=== PATIENT | male | born 1995 | race Caucasian/White ===

== ENCOUNTER 2022-10-04 18:38 | Emergency (ER) | payer OTHER, SELFPAY ==
[2022-10-04 19:54] VITALS: BP 139/77; PULSE 73; RESP 16; TEMP 36.7; O2SAT 98; BMI 20.7
--- NOTE | 2022-10-04 19:54 | ED_ITS ---
HPI - Dental/Oral General Chief complaint: Dental/Oral Stated complaint: infected tooth Time Seen by Provider: 10/04/22 19:55 Source: patient Mode of arrival: ambulatory Limitations: no limitations History of Present Illness HPI Narrative: 26 yo male presents to the ER with left lower dental pain for the last few days, acutely worse in the last 24 hours. Feels like his tooth is infected. 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 He admits to poor dental care. He denies and swelling to the left side of his face. No fevers. No pain with opening his jaw but it hurts to chew on the left side. He has not taken any medications yet for pain. MD Complaint: tooth pain Location: Tooth # (17) Onset (ago): day(s) (3) Duration: worsening Severity: severe Severity scale (1-10): 10 Related Data Previous Rx's Medication Instructions Recorded amoxicillin 875 mg-potassium 1 tab PO Q12H #20 tabs 10/04/22 clavulanate 125 mg tablet ibuprofen 800 mg tablet 800 mg PO Q8H PRN pain #20 tabs 10/04/22 tramadol 50 mg tablet 50 mg PO Q8H PRN pain #10 tabs 10/04/22 Allergies Allergy/AdvReac Type Severity Reaction Status Date / Time No Known Allergies Allergy Unverified 04/24/20 17:54 Review of Systems Review of Systems: Yes all other systems are reviewed and are negative [facility] Social History Social History Advance Directives: No Advance Directives Information Provided: Yes Physical Exam Vital Signs: Vital Signs: Last Vital Signs Temp 98.0 F 10/04/22 19:54 Pulse 73 10/04/22 19:54 Resp 16 10/04/22 19:54 BP 139/77 10/04/22 19:54 Pulse Ox 98 10/04/22 19:54 O2 Del Method 10/04/22 19:54 BMI result Body Mass Index 20.7 Appearance: Alert. Oriented X3. No acute distress. HEENT: normal external inspection, face symmetrical. poor dentition, thick dental plaque along the lingual surface of the lower anterior teeth, left lower molar with decay and tenderness, no associated gingival swelling or fluctuance. no trismus. CVS: Normal heart rate and rhythm. Pulses normal. Respiratory: No respiratory distress. Skin: Skin warm and dry. Normal skin color. Normal skin turgor. No rashes. Extremities: normal inspection x4 Neuro: Oriented X 3. Grossly normal, nonfocal Course Course Course Narrative: 26 yo male with poor dental care presents to the ER with left lower dental pain for the last few days. Exam c/w dental decay and poor dentition. no evidence of abscess at this time. will treat with NSAID, tramadol and empiric abx. he will call the dentist tomorrow morning. stable for d/ chome. Medical Decision Making Differential Diagnosis Differential Diagnoses: The differential diagnosis associated with the presentation includes toothache, dental infection, dental abscess, dental trauma, poor dentition, decay, caries Prescription Management I considered prescription management with: Pain Medication and Antibiotic Chronic Conditions Patient?s care impacted by: Other (active smoker) Critical Care Time Critical Care Time Critical Care Time: No Discharge Plan Discharge Clinical Impression: Toothache Patient Disposition: Home, Self-Care Instructions: Toothache (ED) Additional Instructions: Follow up with a dentist QUIA[facility] Take the prescribed antibiotic as directed - complete the entire course Take the prescribed medications as needed for pain If you develop new or worsening symptoms call 911 or come back to the ER for further evaluation. Prescriptions: New amoxicillin-pot clavulanate 875-125 mg tablet 1 tab PO Q12H Qty: 20 0RF ibuprofen 800 mg tablet 800 mg PO Q8H PRN (Reason: pain) Qty: 20 0RF tramadol 50 mg tablet 50 mg PO Q8H PRN (Reason: pain) Qty: 10 0RF Interventions: ED Discharge Assessment Last Done: 10/04/22 20:05 Discharge Date/Time: 10/04/22 20:06
== END 2022-10-04 20:06 | disposition home or self-care (01) ==
PROVIDERS: Emergency Provider Student in an Organized Health Care Education/Training Program
DX: K08.89 Other specified disorders of teeth and supporting structures (principal); F17.200 Nicotine dependence, unspecified, uncomplicated
CPT/HCPCS: 99282; 99283